=== PATIENT | female | born 2000 | race Asian ===

== ENCOUNTER 2022-03-09 22:06 | Emergency (ER) | payer SELFPAY ==
[~2022-03-09] VITALS: Ht 160 cm; Wt 76.4 kg
[2022-03-09] MEDS ORDERED: ACETAMINOPHEN 325MG TABLET PO STA (23:25)
[2022-03-10] MEDS ORDERED: ONDANSETRON 4MG ODT PO SCH (01:19)
[2022-03-10] MEDS ORDERED: NAPR-681 PO (01:25)
[2022-03-10] MEDS ORDERED: ACETAMINOPHEN 325MG TABLET PO SCH (01:30)
[2022-03-10 01:40] VITALS: BP 155/90
== END 2022-03-10 01:45 | disposition home or self-care (01) ==
LOC: ER 22:06
DX: S00.83XA Contusion of other part of head, initial encounter (principal); S20.229A Contusion of unspecified back wall of thorax, initial encounter; V43.62XA Car passenger injured in collision with other type car in traffic accident, initial encounter; Y93.89 Activity, other specified; Y92.410 Unspecified street and highway as the place of occurrence of the external cause; E89.0 Postprocedural hypothyroidism; Z88.1 Allergy status to other antibiotic agents
CPT/HCPCS: 70450; 99284; Q0162